=== PATIENT | female | born 1980 | race Two or more races ===

== ENCOUNTER 2025-04-30 06:55 | Day surgery (SDC) | payer MEDICAID, SELFPAY ==
--- NOTE | 2025-04-27 08:19 | EKG_ITS ---
[facility] Test Date: 2025-04-27 Pat Name: ALEXEI DAHL Department: Room: - Gender: Female [employer]: [place] : 1980 Requested By: Félix Back Order Number: [id number] Reading MD: Félix Back Measurements Intervals Colby Rate: 70 P: 53 MD: 137 QRS: 84 QRSD: 100 T: 53 QT: 393 QTc: 426 Interpretive Statements SINUS RHYTHM No previous ECG available for comparison /store/S0/[id number]
[2025-04-27 08:35] VITALS: BMI 30.2
[2025-04-27 09:01] LABS: Collection Type, Urine Clean Catch
[2025-04-27 10:01] LABS: Basophils # (Auto) 0.1 Thou/mm3 (0.0-0.2); Basophils % (Auto) 1 % (0-2.5); Eosinophils # (Auto) 3.5 Thou/mm3 (0.0-0.5); Eosinophils % (Auto) 25 % (0-10); Hematocrit 46.0 % (36.0-46.0); Hemoglobin 15.2 g/dL (12.0-16.0); Immature Granulocytes Auto 0.07 Thou/mm3 (0.00-0.00); Lymphocytes # (Auto) 2.8 Thou/mm3 (1.0-4.8); Lymphocytes % (Auto) 20 % (10-50); Mean Corpuscular HGB Conc 33.0 g/dl (31.0-37.0); Mean Corpuscular Hemoglobin 28.1 pg (25.0-35.0); Mean Corpuscular Volume 85 fL (80-100); Monocytes # (Auto) 0.7 Thou/mm3 (0.0-0.8); Monocytes % (Auto) 5 % (0-12); Neutrophils # (Auto) 6.7 Thou/mm3 (1.8-7.7); Neutrophils % (Auto) 49 % (37-80); Nucleated Red Blood Cell # 0.00 Thou/mm3 (0.00-0.00); Nucleated Red Blood Cell % 0 /100 WBC (0); Platelet Count 361 Thou/mm3 (140-440); RDW Standard Deviation 43.0 fL (36.4-46.3); Red Blood Count 5.40 Miln/mm3 (4.00-5.20); White Blood Count 13.9 Thou/mm3 (3.6-11.0)
[2025-04-27 10:11] LABS: Partial Thromboplastin Time 31.4 Seconds (22.0-36.0)
[2025-04-27 10:12] LABS: Bilirubin,Urine Negative (Negative); Blood,Urine Negative (Negative); Clarity,Urine Clear (Clear/Hazy); Color,Urine Colorless (Lt Yel-Yel); Glucose, Urine Negative (Negative); Ketones,Urine Negative (Negative); Leukocyte Esterase,Urine Negative (Negative); Nitrite,Urine Negative (Negative); PH,Urine 6.0 (5.0-7.0); Protein,Urine Negative (Neg - Trace); RBC,Urine 1 /hpf (0-3); Specific Gravity,Urine 1.007 (1.001-1.035); Squamous Epithelial Cell,Urine 2 /hpf (0-5); Urobilinogen,Urine Negative mg/dL (0.0-1.0); WBC,Urine < 1 /hpf (0-5)
[2025-04-27 10:46] LABS: Alanine Aminotransferase 11 U/L (10-49); Albumin, Serum 4.9 gm/dL (3.5-5.0); Albumin/Globulin Ratio 1.7 (1.2-2.2); Alkaline Phosphatase 124 U/L (46-116); Anion Gap 11 (7-16); Aspartate Amino Transferase 15 U/L (0-34); BUN/Creatinine Ratio 10 Ratio (12-20); Bilirubin,Total 0.3 mg/dL (0.3-1.2); Blood Urea Nitrogen 6 mg/dL (9-23); Calcium 9.5 mg/dL (8.3-10.6); Calcium (Corrected) 9.5 mg/dL (8.5-10.1); Carbon Dioxide 24.5 mMol/L (20.0-31.0); Chloride 104 mMol/L (98-107); Creatinine (Component) 0.6 mg/dL (0.6-1.3); Estimated Creatinine Clearance 122.5 mL/min (>60); Globulin 2.9 gm/dL (2.3-3.5); Glucose 95 mg/dL (74-106); Osmolality,Calculated 275 (275-295); Potassium 3.7 mMol/L (3.4-5.1); Sodium 139 mMol/L (136-145); Total Protein 7.8 gm/dL (5.7-8.2); eGFR > 60 See Note
--- NOTE | 2025-04-27 11:30 | SUR.PREOP ---
WBC 13.9, Dr Back notified and ok to proceed.
[2025-04-27 14:27] LABS: Atypical Lymphs 1+; Basophils (Manual) 3 % (0-2); Eosinophils (Manual) 22 % (0-4); Lymphocytes (Manual) 24 % (20-44); Monocytes (Manual) 1 % (2-9); Neutrophils (Manual) 50 % (50-70)
[2025-04-30] VITALS (14 sets, daily range): BP systolic 114–155; BP diastolic 61–104; PULSE 71–96; RESP 14–28; TEMP 36.2–36.7; O2SAT 96–99; BMI 30.5
--- NOTE | 2025-04-30 07:58 | SUR.PREOP ---
Patient expressed gratitude for prayer before their procedure.
--- NOTE | 2025-04-30 12:07 | SUR.PHASEI ---
pt arrived to PACU via gurney, breathing unlabored, dressing to abdomen clean, dry, and intact, report from Baljit RED and Francis IBARRA
--- NOTE | 2025-04-30 12:18 | PD.SUROPNT ---
Date of Procedure 04/30/25 Pre Op Diagnosis Cholecystitis cholelithiasis Post Op Diagnosis Same with pelvic adhesions in the right lower quadrant. Procedure Laparoscopic cholecystectomy and laparoscopic lysis of pelvic adhesions on April 30, 2025 Findings This patient had a hydrops of the gallbladder with the stones in the gallbladder. Posterior view of safety was achieved. There were adhesions in the right lower quadrant with the intestines and lysis of adhesions was necessary. Procedure Description In the preop area the procedure was discussed with the patient including risks benefits and alternatives. The risks include possible laparotomy, bleeding, infection bile duct injury and bile leak. Patient may require ERCP for retained stone or a bile leak. The anesthesia risks are to be explained to the patient by the anesthesiologist. Informed consent was obtained. The patient was positioned supine on the operating table and general anesthesia was administered in a satisfactory manner by the anesthesiologist. A timeout procedure was carried out. The patient is positioned in the reverse Trendelenburg position with the right side up. Orogastric tube is introduced into the stomach to decompress the stomach. Prophylactic antibiotics were given in timely manner. Antiembolism measures were taken. The abdomen chest and groin regions were prepped and draped in usual manner. A supraumbilical vertical incision was made and deepened through the layers of abdominal wall and open laparoscopic procedure is carried out. The balloon catheter was introduced and pneumoperitoneum is achieved. A 30? scope was used. Under direct vision right subxiphoid, midclavicular and anterior axillary line trochars were introduced. The above-mentioned findings were noted. Laparoscopic lysis of adhesions was necessary to clear the right lower abdominal right upper quadrant so that in the trocars can be introduced in a safe manner. This was done laparoscopically with the use of harmonic ultrasonic cheng clearing the peritoneal surfaces on the right side of the abdomen. After lysis of adhesions was completed the attention was focused to the gallbladder. The gallbladder is then lifted up and a laparoscopic lysis of adhesions was carried out. The gallbladder is freed from the adhesions and the nia hepatis is exposed. The triangle of Calot is gently dissected and the artery to cystic duct is divided with harmonic ultrasonic cheng. There is a significant amount of scar chronic scar tissue in the nia hepatis that made the dissection and procedures much slower. The posterior view of safety was achieved. The cystic artery and cystic duct are identified individually and they were ligated close to the gallbladder with hemoclips. There was an accessory cystic artery as well as multiple branches of the cystic artery proper. They were all individually controlled and divided. The cystic artery and the cystic duct are divided between the hemoclips close to the gallbladder. Care was taken to avoid tenting of the common duct. There is a significant length of cystic duct stump towards the common bile duct. The gallbladder is dissected and lifted from the liver bed using harmonic ultrasonic cheng. The gallbladder bed hemostasis is achieved. The gallbladder is retrieved out of the peritoneal cavity in a specimen bag. The balloon cannula is reintroduced and pneumoperitoneum is reestablished. The peritoneal cavity is thoroughly irrigated with sterile saline solution and hemostasis again ascertained. All the cannulas are removed under direct vision there is no bleeding from the cannula sites. The linea alba repair is carried out with the 0 Vicryl continuous suture. The subcutaneous tissues approximated by a 3-0 chromic and skin by 4-0 monocril subcuticular stitch. For the rest of the trocar site incisions are closed in 2 layers with a 3-0 chromic and 4-0 monocril subcuticular stitch. Steri-Strips are applied. Sterile dressings are applied. Complications none. Patient is transferred to the recovery room in a satisfactory condition. Anesthesia GETA Drains None. Implants None. Pathology / specimen Other (Gallbladder with contents) Estimated Blood Loss 5 Condition Stable Disposition PACU Surgeon Félix Back MD Surgical Staff Operation Date: 04/30/25 09:30 Case Staff MICROSTRATEGY REPORTS DEVELOPER: Chan Robles RN First Assistant: Nerissa Leone RN job boss Nasrin Watson surgical instruments inspector Maliha Saleem surgical instruments inspector (1) Cholelithiasis and cholecystitis without obstruction Qualifiers: Cholelithiasis location: gallbladder Cholecystitis acuity: chronic Qualified Code(s): K80.10 - Calculus of gallbladder with chronic cholecystitis without obstruction
--- NOTE | 2025-04-30 12:20 | SUR.PHASEI ---
Report to Veronica Blue RN
--- NOTE | 2025-04-30 13:01 | SUR.PHASEI ---
1258 patient had an episode of emesis, 75ml yellow fluid 1301 verbal order read-back from Francis IBARRA, Zofran 4mg via IVP, will place order in EMR and administered per yehuda chaparro
[2025-04-30] MEDS: ONDANSETRON INJ 2 MG/ML INJ 2 ML 4 MG IVP (13:10)
--- NOTE | 2025-04-30 13:43 | SUR.PHASEI ---
1343 patient continues to sleep, able to open her eyes, responding with a one or two word response, then drifts back to sleep, vital signs stable, notified Francis IBARRA patient current state, new orders at this time, will continue to monitor patient
--- NOTE | 2025-04-30 14:18 | SUR.PHASEI ---
1418 Patients sons at bedside and shared their mother didn't sleep the last couple nights, notified Dr. Back patient continues to sleep and awaken to verbal prompting then drifts back to sleep, remains on oxygen 2L via oxy mask, vital signs stable, Dr. Back gave orders to continue to monitor patient and notified him in a couple hours if no changed in condition, will contact Dr. Parry at 1615 if not change in condition, continuing to monitor patient.
--- NOTE | 2025-04-30 15:51 | SUR.PHASEII ---
1551 Patient meets discharge criteria from recovery, awake and alert, breathing unlabored, vital signs stable, denies pain and nausea- eating ice chips; tolerating well, voided in the restroom prior to discharge, assisted with dressing into her clothing by her daughter, discharge instructions given to patient and patients daughter/son with the assistance of the hospital loss prevention guard Maryanne, son signed discharge instructions. Patient given all her belongings prior to discharge, transported via wheelchair and left in a private vehicle.
== END 2025-04-30 15:51 | disposition home or self-care (01) ==
PROVIDERS: PCP Physician Assistant; Referring Provider Specialist; Visit Provider Specialist
PROC: 0FT44ZZ Resection of Gallbladder, Percutaneous Endoscopic Approach (ICD-10-PCS; CPT 47562; principal; 2025-04-30 09:15)
DX: K80.10 Calculus of gallbladder with chronic cholecystitis without obstruction (principal); K82.1 Hydrops of gallbladder; N73.6 Female pelvic peritoneal adhesions (postinfective); Z01.810 Encounter for preprocedural cardiovascular examination
CPT/HCPCS: 47562; 36415; 80053; 81001; 85025; 85730; 93005; A4217; A4649; J0131; J0690; J1171; J1885; J2250; J2405; J2704; J3010; J3490